=== PATIENT | female | born 1950 | race Caucasian/White ===

== ENCOUNTER 2019-05-15 07:01 | Inpatient (IN) | payer MEDICARE ==
[~2019-05-15] VITALS: Ht 160 cm; Wt 68.0 kg
[~2019-05-15 07:01] MED LIST: ADVIL200 M1; AMOXICILLIN 50500 M1; BACTRIM DS TAB1 EACH PO; BIAXIN 500 MG500 M1 PO; CALAN; CARISOPRODOL 3350 MG PO; DIFLUCAN150 MG PO; EXCEDRIN CAPLE1 EACH PO; FIORICET 50-321 EACH PO; FIORINAL 50-321 EACH PO; FLEXERIL PO; FROVA2.5 MG PO; HYDROCODON-ACE1 EACH; IBUPROFEN PO; IMITREX; IMITREX100 MG PO; KEPPRA 500 MG500 MG PO; MEDROL DOSPAK21 TA1 PO; MELOXICAM7.5 MG; NAPROSYN PO; NAPROSYN375 MG PO; NAPROSYN500 MG PO; NORCO 5-325 TA1 EACH PO; NOVOLOG100 UNIT/1 SQ; PERCOCET 5-3251 EACH; PHENERGAN 25 MG25 M1 PO; PHENERGAN25 MG RE; PRINIVIL20 MG PO; PROPRANOLOL 20M20 M1 PO; PROTONIX PO; PROTONIX40 M2 PO; PROTONIX40 MG PO; TRANSDERM-SCOP1 EACH TD; ULTRAM 50MG TAB50 MG PO; VENTOLIN HFA INH8 GM IH; VERAPAMIL HCL 880 M1 PO; VICODIN 5-5001 EACH PO; ZESTRIL20 MG PO; ZOCOR 20 MG TAB20 M1 PO; ZOFRAN ODT4 MG PO; ZOFRAN4 MG PO
[2019-05-15 07:08] VITALS: BP 128/96
[2019-05-15 07:34] LABS: HEMATOCRIT 38.3 % (37.0-47.0); HEMOGLOBIN 12.2 gm/dL (12.0-15.0); MCH 27.3 pg (26.0-34.0); MCHC 31.9 g/dL (28.0-37.0); MCV 85.4 fL (80.0-100.0); MPV 7.9 fl. (7.2-11.1); NUCLEATED RBCS 0 /100WBC; PLATELET COUNT* 618 thou/uL (150-400); RBC 4.48 mil/uL (4.20-5.00); RDW-CV 16.7 % (10.5-14.5); WBC 11.8 thou/uL (4.0-11.0)
[2019-05-15 07:34] LABS: URINE BILIRUBIN NEGATIVE (Negative); URINE BLOOD NEGATIVE (Negative); URINE CLARITY CLEAR; URINE COLOR YELLOW; URINE GLUCOSE-RANDOM NEGATIVE (Negative); URINE KETONES TRACE (Negative); URINE LEUKOCYTES-REFLEX NEGATIVE (Negative); URINE NITRITE-REFLEX NEGATIVE (Negative); URINE PROTEIN TRACE (Negative); URINE SPECIFIC GRAVITY 1.025 (1.005-1.030); URINE UROBILINOGEN 0.2 E.U./dl (0.2-1.0)
[2019-05-15 07:46] LABS: CREATININE 0.8 mg/dL (0.6-1.3); POTASSIUM 5.3 mmol/L (3.5-5.1)
[2019-05-15 07:51] LABS: ALBUMIN 3.9 g/dL (3.4-5.0); TOTAL BILIRUBIN 0.3 mg/dL (<0.1-1.0); TOTAL PROTEIN 7.9 g/dL (6.4-8.2)
[2019-05-15 08:44] LABS: ABSOLUTE EOSINOPHILS 0.1 thou/uL (0.0-0.7); ABSOLUTE LYMPHOCYTES 0.7 thou/uL (0.8-5.3); ABSOLUTE MONOCYTES 0.2 thou/uL (0.0-1.2); ABSOLUTE NEUTROPHILS 10.7 thou/uL (1.6-8.1); PLATELET ESTIMATE ADEQUATE
[2019-05-15 10:08] VITALS: BP 164/104
[2019-05-15 16:21] VITALS: BP 151/94
[2019-05-15 20:30] VITALS: BP 154/100
[2019-05-16 04:13] LABS: HEMATOCRIT 32.8 % (37.0-47.0); HEMOGLOBIN 10.6 gm/dL (12.0-15.0); MCH 28.1 pg (26.0-34.0); MCHC 32.5 g/dL (28.0-37.0); MCV 86.3 fL (80.0-100.0); MPV 7.9 fl. (7.2-11.1); RBC 3.79 mil/uL (4.20-5.00); RDW-CV 16.7 % (10.5-14.5); WBC 7.9 thou/uL (4.0-11.0)
[2019-05-16 04:33] LABS: ALBUMIN 3.1 g/dL (3.4-5.0); CALCIUM 8.1 mg/dL (8.5-10.1); CREATININE 0.7 mg/dL (0.6-1.3); MAGNESIUM 1.8 mg/dL (1.8-2.4); POTASSIUM 3.3 mmol/L (3.5-5.1); TOTAL BILIRUBIN 0.2 mg/dL (<0.1-1.0); TOTAL PROTEIN 6.3 g/dL (6.4-8.2)
[2019-05-16 07:11] VITALS: BP 138/80
--- NOTE | 2019-05-16 11:36 | EKG ---
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1950 Requested By: Chin Juarez Order Number: [id number] MD: Jonnathan Maya Measurements Intervals [place] Rate: 104 P: 31 WI: 158 QRS: 62 QRSD: 79 T: 54 QT: 320 QTc: 421 Interpretive Statements Sinus tachycardia Borderline T wave abnormalities Baseline wander in lead(s) V5,V6 Compared to ECG 11/08/2009 11:38:02 T-wave abnormality now present Sinus rhythm no longer present Electronically Signed On 05-16-2019 11:36:08 RECORDS SECTION SUPERVISOR by Jonnathan Maya [email or web address] <ELECTRONICALLY SIGNED> By: Jonnathan Maya MD, [facility] 05/16/19 1136 4 4 Jonnathan Maya MD, [facility] /EPI
[2019-05-16 16:00] VITALS: BP 141/79
[2019-05-16 21:00] VITALS: BP 142/92
[2019-05-17 05:26] LABS: HEMATOCRIT 28.5 % (37.0-47.0); HEMOGLOBIN 9.3 gm/dL (12.0-15.0); MCH 28.2 pg (26.0-34.0); MCHC 32.7 g/dL (28.0-37.0); MCV 86.3 fL (80.0-100.0); MPV 7.7 fl. (7.2-11.1); RBC 3.3 mil/uL (4.20-5.00); RDW-CV 16.9 % (10.5-14.5); WBC 6.4 thou/uL (4.0-11.0)
[2019-05-17 05:33] LABS: CALCIUM 7.5 mg/dL (8.5-10.1); CREATININE 0.6 mg/dL (0.6-1.3); POTASSIUM 3.1 mmol/L (3.5-5.1)
[2019-05-17 07:02] VITALS: BP 144/84
[2019-05-17 14:13] VITALS: BP 144/84
[2019-05-17 15:00] VITALS: BP 144/84
== END 2019-05-17 15:00 | disposition home or self-care (01) | DRG 389 ==
LOC: M.ERS 07:01 → M.ORTHSURG 09:38 → M.TBA-ER 09:38 → M.ORTHSURG 10:17
PROVIDERS: Family Medicine; Surgery; ADMIT Internal Medicine
DX: K56.600 Partial intestinal obstruction, unspecified as to cause (principal); E44.1 Mild protein-calorie malnutrition; G43.909 Migraine, unspecified, not intractable, without status migrainosus; I10 Essential (primary) hypertension; K21.9 Gastro-esophageal reflux disease without esophagitis; E87.6 Hypokalemia; Z79.899 Other long term (current) drug therapy; Z90.710 Acquired absence of both cervix and uterus; Z88.8 Allergy status to other drugs, medicaments and biological substances; Z68.26 Body mass index [BMI] 26.0-26.9, adult

== ENCOUNTER 2019-07-13 19:22 | Emergency (ER) | payer MEDICARE ==
[~2019-07-13] VITALS: Ht 157.5 cm; Wt 66.2 kg
[2019-07-13] MEDS ORDERED: VERAPAMIL ER240 M1 PO (19:46)
[2019-07-13 20:39] LABS: ABSOLUTE EOSINOPHILS 0.2 thou/uL (0.0-0.7); ABSOLUTE LYMPHOCYTES 2.6 thou/uL (0.8-5.3); ABSOLUTE MONOCYTES 0.5 thou/uL (0.0-1.2); ABSOLUTE NEUTROPHILS 4.8 thou/uL (1.6-8.1); BASOPHILS 0.3 %; EOSINOPHILS 2.3 %; HEMATOCRIT 37.6 % (37.0-47.0); HEMOGLOBIN 12.4 gm/dL (12.0-15.0); LYMPHOCYTES 31.7 %; MCH 28.7 pg (26.0-34.0); MONOCYTES 5.8 %; MPV 7.8 fl. (7.2-11.1); NUCLEATED RBCS 0 /100WBC; PLATELET COUNT* 466 thou/uL (150-400); POLYS 59.9 %; RBC 4.32 mil/uL (4.20-5.00); RDW-CV 16.9 % (10.5-14.5)
[2019-07-13 20:43] LABS: URINE BILIRUBIN NEGATIVE (Negative); URINE BLOOD NEGATIVE (Negative); URINE CLARITY CLEAR; URINE COLOR YELLOW; URINE GLUCOSE-RANDOM NEGATIVE (Negative); URINE KETONES NEGATIVE (Negative); URINE LEUKOCYTES NEGATIVE (Negative); URINE NITRITE NEGATIVE (Negative); URINE PROTEIN NEGATIVE (Negative); URINE UROBILINOGEN 0.2 E.U./dl (0.2-1.0)
[2019-07-13 20:45] LABS: CALCIUM 9.3 mg/dL (8.5-10.1); CREATININE 0.9 mg/dL (0.6-1.3); POTASSIUM 3.2 mmol/L (3.5-5.1)
[2019-07-13 20:50] LABS: TOTAL BILIRUBIN 0.2 mg/dL (<0.1-1.0); TOTAL PROTEIN 7.8 g/dL (6.4-8.2)
[2019-07-13] MEDS ORDERED: PREDNISONE 10 M10 MG PO (23:04)
[2019-07-13] MEDS ORDERED: BENTYL 10 MG CA10 MG PO (23:04)
[2019-07-13] MEDS ORDERED: CYCLOBENZAPRINE5 MG PO (23:04)
[2019-07-13 23:35] VITALS: BP 156/88
--- NOTE | 2019-07-14 09:23 | EKG ---
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 : 1950 Requested By: Maria T Bridges Order Number: [id number] MD: Jonnathan Maya Measurements Intervals [place] Rate: 91 P: 47 DE: 153 QRS: 66 QRSD: 88 T: 55 QT: 361 QTc: 445 Interpretive Statements Sinus rhythm Borderline T abnormalities, anterior leads Compared to ECG 05/15/2019 07:25:49 Sinus tachycardia no longer present T-wave abnormality still present Electronically Signed On 07-14-2019 9:22:51 SKILLED LABOR by Jonnathan Maya [email or web address] <ELECTRONICALLY SIGNED> By: Jonnathan Maya MD, [facility] 07/14/19921 51 51 Jonnathan Maya MD, [facility] /EPI
== END 2019-07-13 23:37 | disposition home or self-care (01) ==
LOC: M.ERS 19:22
PROVIDERS: Physician Assistant
DX: K52.9 Noninfective gastroenteritis and colitis, unspecified (principal); I10 Essential (primary) hypertension; K21.9 Gastro-esophageal reflux disease without esophagitis; G43.909 Migraine, unspecified, not intractable, without status migrainosus; Z90.711 Acquired absence of uterus with remaining cervical stump

== ENCOUNTER → 2019-08-01 | Outpatient (CLI) | payer MEDICARE ==
[~2019-08-01] MED LIST changes: +BENTYL 10 MG CA10 MG PO; +CYCLOBENZAPRINE5 MG PO; +OXYCODONE HCL 55 MG PO; +PREDNISONE 10 M10 MG PO; +VERAPAMIL ER240 M1 PO
== END ==
LOC: M.ULTRA 09:00
DX: R10.11 Right upper quadrant pain (principal)

== ENCOUNTER 2019-08-03 08:00 | Emergency (ER) | payer MEDICARE ==
[~2019-08-03] VITALS: Ht 160 cm; Wt 66.2 kg
[~2019-08-03 08:00] MED LIST changes: -OXYCODONE HCL 55 MG PO
[2019-08-03 09:02] LABS: APTT 26.1 Seconds (25.0-31.3); PROTIME 9.8 Seconds (9.20-11.50)
[2019-08-03] MEDS ORDERED: ZOFRAN ODT4 MG PO (09:39)
[2019-08-03] MEDS ORDERED: OXYCODONE HCL 55 MG PO (09:39)
[2019-08-03] MEDS ORDERED: IMITREX100 MG PO (10:01)
[2019-08-03 10:12] VITALS: BP 137/93
== END 2019-08-03 10:13 | disposition home or self-care (01) ==
LOC: M.ERS 08:00
PROVIDERS: Personal Emergency Response Attendant
DX: G43.909 Migraine, unspecified, not intractable, without status migrainosus (principal); I10 Essential (primary) hypertension; K21.9 Gastro-esophageal reflux disease without esophagitis; Z90.711 Acquired absence of uterus with remaining cervical stump; Z98.51 Tubal ligation status; Z88.8 Allergy status to other drugs, medicaments and biological substances

== ENCOUNTER 2019-08-07 06:38 | Emergency (ER) | payer MEDICARE ==
[~2019-08-07] VITALS: Ht 160 cm; Wt 66.7 kg
[~2019-08-07 06:38] MED LIST changes: +OXYCODONE HCL 55 MG PO
[2019-08-07 09:54] VITALS: BP 162/97
[2019-08-07] MEDS ORDERED: VERAPAMIL ER240 M1 PO (17:57)
== END 2019-08-07 09:54 | disposition home or self-care (01) ==
LOC: M.ERS 06:38
DX: G43.909 Migraine, unspecified, not intractable, without status migrainosus (principal); I10 Essential (primary) hypertension; K21.9 Gastro-esophageal reflux disease without esophagitis; Z90.721 Acquired absence of ovaries, unilateral; Z88.8 Allergy status to other drugs, medicaments and biological substances

== ENCOUNTER 2019-08-07 17:42 | Inpatient (IN) | payer MEDICARE ==
[~2019-08-07] VITALS: Ht 160 cm; Wt 71.8 kg
[2019-08-07 17:54] VITALS: BP 156/100
[2019-08-07] MEDS ORDERED: VERAPAMIL ER240 M1 PO (17:57)
[2019-08-07 19:47] LABS: INFLUENZA A ANTIGEN Negative (Negative); INFLUENZA B ANTIGEN Negative (Negative)
[2019-08-07 20:02] LABS: HEMOGLOBIN 11.6 gm/dL (12.0-15.0); MCH 29.2 pg (26.0-34.0); MCV 88.5 fL (80.0-100.0); MPV 7.9 fl. (7.2-11.1); NUCLEATED RBCS 0 /100WBC; PLATELET COUNT* 403 thou/uL (150-400); RBC 3.96 mil/uL (4.20-5.00); RDW-CV 17.4 % (10.5-14.5); WBC 8.1 thou/uL (4.0-11.0)
[2019-08-07 20:13] LABS: CALCIUM 8.4 mg/dL (8.5-10.1); CREATININE 0.8 mg/dL (0.6-1.3); POTASSIUM 3.5 mmol/L (3.5-5.1)
[2019-08-07 20:18] LABS: ALBUMIN 3.2 g/dL (3.4-5.0); TOTAL BILIRUBIN 0.2 mg/dL (<0.1-1.0); TOTAL PROTEIN 6.8 g/dL (6.4-8.2)
[2019-08-07 20:29] LABS: ABSOLUTE LYMPHOCYTES 0.7 thou/uL (0.8-5.3); ABSOLUTE NEUTROPHILS 7.4 thou/uL (1.6-8.1)
[2019-08-07 20:30] LABS: ANISOCYTOSIS Occasional; PLATELET ESTIMATE ADEQUATE
[2019-08-07 21:10] LABS: ESR (SEDRATE) 36 mm/hr (0-30)
[2019-08-07 22:08] VITALS: BP 135/75
[2019-08-07 22:17] VITALS: BP 153/96
[2019-08-07 23:40] LABS: URINE BILIRUBIN NEGATIVE (Negative); URINE BLOOD NEGATIVE (Negative); URINE CLARITY CLEAR; URINE COLOR YELLOW; URINE GLUCOSE-RANDOM NEGATIVE (Negative); URINE KETONES NEGATIVE (Negative); URINE LEUKOCYTES-REFLEX NEGATIVE (Negative); URINE NITRITE-REFLEX NEGATIVE (Negative); URINE PROTEIN NEGATIVE (Negative); URINE UROBILINOGEN 0.2 E.U./dl (0.2-1.0)
[2019-08-07 23:47] LABS: AMP/METHAMP Negative (Negative); BARBITURATES POSITIVE (Negative); BENZODIAZEPINES Negative (Negative); COCAINE Negative (Negative); METHADONE Negative (Negative); OPIATES Negative (Negative); PCP Negative (Negative); THC Negative (Negative)
[2019-08-08 03:06] VITALS: BP 131/89
--- NOTE | 2019-08-08 05:55 | NUR ---
PATIENT HAS REMAINED ALERT AND ORIENTED X 4 THROUGHOUT THE SHIFT AND RESTING AT INTERVALS ON HOURLY ROUNDS. DID OBTAIN ADEQUATE PAIN MANAGEMENT WITH ORDERED IV PAIN MEDS AFTER ARRIVAL TO UNIT. UP SBA TO BR WITH GOOD URINE OUTPUT. VITAL SIGNS STABLE. NEUROLOGY CONSULT TODAY. CONTINUE TO MONITOR.
[2019-08-08 07:25] VITALS: BP 117/77
--- NOTE | 2019-08-08 10:42 | NUR ---
CM COMPLETED INITIAL ASSESSMENT. PT A&O. PT LIVES WITH SPOUSE. HAS 0 DMES. NO HX W/HH NOR SNF. PT IS RETIRED. PT DRIVES, ACTIVE AND INDEPENDENT W/ADLS. NO NEEDS IDENTIFIED AT THIS TIME. CM TO REMAIN AVAIL.
[2019-08-08 13:40] VITALS: BP 117/77
[2019-08-08 17:46] VITALS: BP 117/77
[2019-08-08 17:52] VITALS: BP 117/77
--- NOTE | 2019-08-08 17:52 | NUR ---
PT GIVEN DISCHARGE INFORMATION. IV REMOVED. PT BELONGINGS GATHERED. PT LEFT WITHOUT NOTIRFYONG NURSING STAFF THAT THEIR RIDE WAS HERE. FALL RISK PRECAUTIONS IN PLACE. HOURLY ROUNDING COMPLETED.
== END 2019-08-08 17:53 | disposition home or self-care (01) | DRG 918 ==
LOC: M.ERS 17:42 → M.TBA-ER 21:08 → M.ORTHSURG 21:08
PROVIDERS: Nurse Practitioner Family; ADMIT Internal Medicine
DX: T39.8X1A Poisoning by other nonopioid analgesics and antipyretics, not elsewhere classified, accidental (unintentional), initial encounter (principal); G44.41 Drug-induced headache, not elsewhere classified, intractable; G43.909 Migraine, unspecified, not intractable, without status migrainosus; K21.9 Gastro-esophageal reflux disease without esophagitis; I10 Essential (primary) hypertension; Z90.711 Acquired absence of uterus with remaining cervical stump; Z79.899 Other long term (current) drug therapy; Y92.89 Other specified places as the place of occurrence of the external cause; Z88.8 Allergy status to other drugs, medicaments and biological substances

== ENCOUNTER 2019-08-10 01:57 | Emergency (ER) | payer MEDICARE ==
[~2019-08-10] VITALS: Ht 160 cm; Wt 64.9 kg
[2019-08-10] MEDS ORDERED: BENTYL 10 MG CA10 MG PO (02:06)
[2019-08-10 05:35] VITALS: BP 189/110
== END 2019-08-10 05:35 | disposition home or self-care (01) ==
LOC: M.ERS 01:57
DX: G43.909 Migraine, unspecified, not intractable, without status migrainosus (principal); I10 Essential (primary) hypertension; K21.9 Gastro-esophageal reflux disease without esophagitis; Z90.711 Acquired absence of uterus with remaining cervical stump; Z88.8 Allergy status to other drugs, medicaments and biological substances

== ENCOUNTER 2019-08-10 10:36 | Emergency (ER) | payer MEDICARE ==
[~2019-08-10] VITALS: Ht 160 cm; Wt 64.9 kg
[2019-08-10 11:04] VITALS: BP 171/113
== END 2019-08-10 11:07 | disposition left against medical advice (07) ==
LOC: M.ERS 10:36
DX: G43.909 Migraine, unspecified, not intractable, without status migrainosus (principal); I10 Essential (primary) hypertension; K21.9 Gastro-esophageal reflux disease without esophagitis; Z90.711 Acquired absence of uterus with remaining cervical stump; Z88.8 Allergy status to other drugs, medicaments and biological substances

== ENCOUNTER 2019-11-29 18:49 | Emergency (ER) | payer MEDICARE ==
[~2019-11-29] VITALS: Ht 160 cm; Wt 65.8 kg
[2019-11-29 20:18] LABS: ABSOLUTE BASOPHILS 0.1 thou/uL (0.0-0.2); ABSOLUTE EOSINOPHILS 0.1 thou/uL (0.0-0.7); ABSOLUTE LYMPHOCYTES 2.2 thou/uL (0.8-5.3); ABSOLUTE MONOCYTES 0.5 thou/uL (0.0-1.2); ABSOLUTE NEUTROPHILS 3.5 thou/uL (1.6-8.1); BASOPHILS 1.2 %; EOSINOPHILS 2.2 %; HEMATOCRIT 38.3 % (37.0-47.0); LYMPHOCYTES 33.5 %; MCH 31.5 pg (26.0-34.0); MCHC 33.9 g/dL (28.0-37.0); MCV 93.1 fL (80.0-100.0); MONOCYTES 7.8 %; MPV 7.5 fl. (7.2-11.1); NUCLEATED RBCS 0 /100WBC; PLATELET COUNT* 451 thou/uL (150-400); POLYS 55.3 %; RBC 4.11 mil/uL (4.20-5.00); RDW-CV 13.7 % (10.5-14.5); WBC 6.4 thou/uL (4.0-11.0)
[2019-11-29 20:27] LABS: PROTIME 9.9 Seconds (9.20-11.50)
[2019-11-29 21:52] LABS: CREATININE 0.9 mg/dL (0.6-1.3); POTASSIUM 3.4 mmol/L (3.5-5.1)
[2019-11-29 21:57] LABS: ALBUMIN 4.1 g/dL (3.4-5.0); TOTAL BILIRUBIN 0.3 mg/dL (<0.1-1.0); TOTAL PROTEIN 7.8 g/dL (6.4-8.2)
[2019-11-29 22:54] VITALS: BP 133/88
== END 2019-11-29 22:55 | disposition home or self-care (01) ==
LOC: M.ERS 18:49
PROVIDERS: Emergency Medicine
DX: G43.909 Migraine, unspecified, not intractable, without status migrainosus (principal); I10 Essential (primary) hypertension; K21.9 Gastro-esophageal reflux disease without esophagitis; Z90.710 Acquired absence of both cervix and uterus; Z98.51 Tubal ligation status

== ENCOUNTER 2020-12-18 21:13 | Inpatient (IN) | payer MEDICARE ==
[~2020-12-18] VITALS: Ht 157.5 cm; Wt 65.7 kg
[2020-12-18 21:28] VITALS: BP 164/106
[2020-12-18] MEDS ORDERED: FLEXERIL PO (21:32)
[2020-12-18 22:55] LABS: CALCIUM 9.7 mg/dL (8.5-10.1); CREATININE 0.6 mg/dL (0.6-1.3); POTASSIUM 4.4 mmol/L (3.5-5.1)
[2020-12-18 22:57] LABS: HEMATOCRIT 43.1 % (37.0-47.0); MPV 8.1 fl. (7.2-11.1); RBC 4.65 mil/uL (4.20-5.00)
[2020-12-18 22:59] LABS: ALBUMIN 3.9 g/dL (3.4-5.0); HEMOGLOBIN 14.5 gm/dL (12.0-15.0); MCH 31.2 pg (26.0-34.0); MCHC 33.7 g/dL (28.0-37.0); MCV 92.6 fL (80.0-100.0); NUCLEATED RBCS 0 /100WBC; PLATELET COUNT* 419 thou/uL (150-400); RDW-CV 15.2 % (10.5-14.5); TOTAL BILIRUBIN 0.3 mg/dL (<0.1-1.0); TOTAL PROTEIN 7.2 g/dL (6.4-8.2); WBC 13.5 thou/uL (4.0-11.0)
--- NOTE | 2020-12-18 23:07 | NUR ---
PT TO CT
[2020-12-18 23:47] LABS: URINE BILIRUBIN NEGATIVE (Negative); URINE BLOOD NEGATIVE (Negative); URINE CLARITY CLEAR; URINE COLOR YELLOW; URINE GLUCOSE-RANDOM NEGATIVE (Negative); URINE KETONES NEGATIVE (Negative); URINE LEUKOCYTES-REFLEX NEGATIVE (Negative); URINE NITRITE-REFLEX NEGATIVE (Negative); URINE PROTEIN NEGATIVE (Negative); URINE SPECIFIC GRAVITY 1.015 (1.005-1.030); URINE UROBILINOGEN 0.2 E.U./dl (0.2-1.0)
[2020-12-18 23:56] LABS: ABSOLUTE LYMPHOCYTES 1.2 thou/uL (0.8-5.3); ABSOLUTE MONOCYTES 0.1 thou/uL (0.0-1.2); ABSOLUTE NEUTROPHILS 12.2 thou/uL (1.6-8.1)
[2020-12-18 23:58] LABS: PLATELET ESTIMATE INCREASED
[2020-12-19 02:36] VITALS: BP 146/95
[2020-12-19 02:43] VITALS: BP 149/92
--- NOTE | 2020-12-19 06:37 | NUR ---
ASSUMED CARE OF PT AT APPROX 0233. PT A&OX4, VSS ON ROOM AIR. PT WITH SBA TO [facility]. IV FLUIDS INFUSING ORDERED. PRN IV PAIN AND ANTIEMETIC MEDICATION REQUESTED AND GIVEN ORDERED. PT NPO. ASSESSMENTS AND HOURLY ROUNDINGS COMPLETE, WILL CONTINUE TO MONITOR.
[2020-12-19 08:20] VITALS: BP 143/94
--- NOTE | 2020-12-19 09:32 | EKG ---
[place] [address] ELECTROCARDIOGRAM REPORT Name: DAQUAN HUYNH NILDA Room: [address] ADM IN .R.#: [id number] Admission: 12/19/20 Attend Phys: Pascual Love Discharge: Date of : 54 Date of Service: 12/18/202126 Report #: [id number] THIS REPORT FOR: //name// [facility] ED Test Date: 2020-12-18 Test Time: 21:27:30 Pat Name: DAQUAN HUYNH Department: Room: [facility] Gender: F Apartment Locator: [place] : 1950 Requested By: Puja Garg Order Number: [id number] MD: Jonnathan Maya Measurements Intervals [place] Rate: 104 P: 70 AR: 190 QRS: 73 QRSD: 95 T: 44 QT: 345 QTc: 454 Interpretive Statements Sinus tachycardia Borderline T wave abnormalities Baseline wander in lead(s) V6 Compared to ECG 07/13/2019 19:52:23 Sinus rhythm no longer present T-wave abnormality still present Electronically Signed On 12-19-2020 9:32:40 CDT by Jonnathan Maya [email or web address] <ELECTRONICALLY SIGNED> By: Jonnathan Maya MD, [facility] 12/19/20931 26 26 Jonnathan Maya MD, [facility] /EPI
[2020-12-19 15:46] VITALS: BP 170/93
--- NOTE | 2020-12-19 16:10 | NUR ---
PT ADMITTED D/T SOB. INDICATED SHE LIVES AT HOME WITH SPOUSE. PT HAD 0 DMES, AND IS INDEPENDENT WITH ADLS. PT HAS NO HX WITH HH OR SNF, PT DOESNT BELIEVE SHE'LL NEED HH AT D/C. THERE ARE NO ANTICIPATED CM NEEDS AT D/C.
--- NOTE | 2020-12-19 18:30 | NUR ---
PT ALERT AND ORIENTED X 4. ANXIOUS. FLAT AFFECT AT TIME. CALL LIGHT WITHIN REACH. STANDBY ASSIST. PT C/O HEADACHE. DR. MENARD NOTIFIED. CT NEGATIVE. WILL CONTINUE TO MONITOR.
[2020-12-19 21:10] VITALS: BP 170/98
[2020-12-20 05:39] LABS: HEMATOCRIT 34.1 % (37.0-47.0); MCH 31.6 pg (26.0-34.0); MCHC 34.1 g/dL (28.0-37.0); MCV 92.7 fL (80.0-100.0); MPV 7.5 fl. (7.2-11.1); RBC 3.67 mil/uL (4.20-5.00); WBC 8.4 thou/uL (4.0-11.0)
[2020-12-20 05:47] LABS: CALCIUM 8.5 mg/dL (8.5-10.1); CREATININE 0.5 mg/dL (0.6-1.3); MAGNESIUM 1.8 mg/dL (1.8-2.4)
[2020-12-20 05:48] LABS: HEMOGLOBIN 11.6 gm/dL (12.0-15.0)
[2020-12-20 05:55] LABS: POTASSIUM 2.9 mmol/L (3.5-5.1)
--- NOTE | 2020-12-20 07:43 | NUR ---
PATIENT HAS SLEPT OFF AND ON DURING THE NIGHT WITH PERIODS OF RESTLESSNESS. VSS ON RA, ALTHOUGH BP ELEVATED. PATIENT C/O HEADACHE BUT DOES HAVE HISTORY OF MIGRAINES. PATIENT HAS REMAINED NPO EXCEPT FOR SIPS WITH MEDICATIONS. MEDICATIONS GIVEN ORDERED AND CHARTED. IV IN LEFT FOREARM-NS @ 100ML/HR. NO BM NOTED DURING SHIFT. PATIENT INSTRUCTED TO USE SHAILESH LIGHT WHEN NEEDING ASSISTANCE. HOURLY ROUNDS MADE. WILL CONTINUE WITH PLAN OF CARE AND NURSING TO MONITOR.
[2020-12-20 07:45] VITALS: BP 143/94
[2020-12-20 10:56] LABS: MAGNESIUM 1.9 mg/dL (1.8-2.4); PHOSPHORUS* 2.1 mg/dL (2.5-4.9)
--- NOTE | 2020-12-20 14:46 | NUR ---
PT CONT WITH UNCONTROLLED PAIN AND NEED TO HAVE BOWEL MOVEMENT. POC IS FOR PT TO D/C HOME WITH NO CM NEEDS.
[2020-12-20 15:55] LABS: POTASSIUM 3.2 mmol/L (3.5-5.1)
[2020-12-20 16:00] VITALS: BP 141/88
--- NOTE | 2020-12-20 18:30 | NUR ---
PT ALERT AND ORIENTED. PT UP STEADY WITHOUT ASSIST. CALL LIGHT WITHIN REACH. PT C/O HEADACHE AT THIS TIME. DENIES NAUSEA. AT BEDSIDE. ICE APPLIED TO LOWER FOREARM DUE TO SWELLING AND PAIN. IV TAKEN OUT DUE TO INFILTRATION. POTASSIUM AND PHOSPHORUS REPLACEMENT GIVEN. PT HAD 4 LOOSE STOOLS THIS SHIFT. SURGERY RESIDENT IN TO SEE PATIENT. PT REMAINS ON CLEAR LIQUIDS. TOLERATING WELL. WILL CONTINUE TO MONITOR.
[2020-12-20 21:20] VITALS: BP 137/83
--- NOTE | 2020-12-21 07:39 | NUR ---
PATIENT HAS RESTED WELL [id number] MOST OF THE NIGHT. VSS ON RA. MEDICATIONS GIVEN ORDERED AND CHARTED. NO IV ACCESS. ATTEMPTS MADE AT OBTAINING PERIPHERAL IV ACCESS BUT WAS UNSUCCESSFUL. DR. MCKEE NOTIFIED OF PATIENT NOT HAVING IV ACCESS AND NEW ORDER GIVEN FOR ORAL ZOFRAN PRN. NO BOWEL MOVEMENTS NOTED DURING SHIFT. PATIENT ADVANCED TO REGULAR DIET THIS AM. PATIENT INSTRUCTED TO USE CALL LIGHT WHEN NEEDING ASSISTANCE. HOURLY ROUNDS MADE. WILL CONTINUE WITH PLAN OF CARE AND NURSING TO MONITOR.
[2020-12-21 07:46] LABS: ABSOLUTE BASOPHILS 0.1 thou/uL (0.0-0.2); ABSOLUTE EOSINOPHILS 0.4 thou/uL (0.0-0.7); ABSOLUTE LYMPHOCYTES 1.8 thou/uL (0.8-5.3); ABSOLUTE MONOCYTES 0.4 thou/uL (0.0-1.2); BASOPHILS 1.4 %; EOSINOPHILS 8.8 %; HEMATOCRIT 34.2 % (37.0-47.0); HEMOGLOBIN 11.6 gm/dL (12.0-15.0); LYMPHOCYTES 38.8 %; MCH 31.5 pg (26.0-34.0); MCHC 33.8 g/dL (28.0-37.0); MCV 93.1 fL (80.0-100.0); MONOCYTES 7.6 %; MPV 7.2 fl. (7.2-11.1); NUCLEATED RBCS 0 /100WBC; PLATELET COUNT* 402 thou/uL (150-400); POLYS 43.4 %; RBC 3.67 mil/uL (4.20-5.00); RDW-CV 15.1 % (10.5-14.5); WBC 4.7 thou/uL (4.0-11.0)
[2020-12-21 07:56] LABS: CALCIUM 8.7 mg/dL (8.5-10.1); CREATININE 0.6 mg/dL (0.6-1.3)
[2020-12-21 07:57] LABS: POTASSIUM 4.6 mmol/L (3.5-5.1)
[2020-12-21 08:00] VITALS: BP 137/102
[2020-12-21 13:36] VITALS: BP 173/102
--- NOTE | 2020-12-21 14:13 | NUR ---
PT ALERT AND ORIENTED X 4. PT STATES UNDERSTANDING TO DISCHARGE INSTRUCTIONS. PT TO FOLLOW UP WITH PCP DIRECTED. PT GIVEN HOME MEDS LOCKED UP IN PHARMACY. AT BEDSIDE. PT STEADILY AMBULATORY. NO COMPLAINTS AT THIS TIME.
[2020-12-21 15:21] VITALS: BP 173/102
== END 2020-12-21 14:30 | disposition home or self-care (01) | DRG 389 ==
LOC: M.ERS 21:13 → M.TBA-ER 12-19 01:05 → M.ORTHSURG 12-19 01:05
PROVIDERS: Internal Medicine; Personal Emergency Response Attendant; ADMIT Internal Medicine; ATTEND Internal Medicine
DX: K56.609 Unspecified intestinal obstruction, unspecified as to partial versus complete obstruction (principal); R65.10 Systemic inflammatory response syndrome (SIRS) of non-infectious origin without acute organ dysfunction; I10 Essential (primary) hypertension; G43.909 Migraine, unspecified, not intractable, without status migrainosus; R91.8 Other nonspecific abnormal finding of lung field; K21.9 Gastro-esophageal reflux disease without esophagitis; Z20.822 Contact with and (suspected) exposure to COVID-19; Z90.711 Acquired absence of uterus with remaining cervical stump; Z88.8 Allergy status to other drugs, medicaments and biological substances; Z79.899 Other long term (current) drug therapy

== ENCOUNTER 2021-06-11 19:02 | Emergency (ER) | payer MEDICARE ==
[~2021-06-11] VITALS: Ht 157.5 cm; Wt 59.0 kg
[2021-06-11] MEDS ORDERED: BENTYL10 MG/1 ML PO (19:22)
[2021-06-11 20:21] LABS: INFLUENZA A ANTIGEN Negative (Negative); INFLUENZA B ANTIGEN Negative (Negative)
[2021-06-11 21:31] LABS: URINE BILIRUBIN NEGATIVE (Negative); URINE BLOOD NEGATIVE (Negative); URINE CLARITY CLEAR; URINE COLOR YELLOW; URINE GLUCOSE-RANDOM NEGATIVE (Negative); URINE KETONES NEGATIVE (Negative); URINE LEUKOCYTES-REFLEX NEGATIVE (Negative); URINE NITRITE-REFLEX NEGATIVE (Negative); URINE PROTEIN NEGATIVE (Negative); URINE UROBILINOGEN 0.2 E.U./dl (0.2-1.0)
[2021-06-11] MEDS ORDERED: ZOFRAN ODT4 MG PO (22:53)
[2021-06-11 22:58] VITALS: BP 144/72
== END 2021-06-11 22:58 | disposition home or self-care (01) ==
LOC: M.ERS 19:02
PROVIDERS: Emergency Medicine; Physician Assistant
DX: G43.909 Migraine, unspecified, not intractable, without status migrainosus (principal); Z20.822 Contact with and (suspected) exposure to COVID-19; I10 Essential (primary) hypertension; K21.9 Gastro-esophageal reflux disease without esophagitis; Z98.51 Tubal ligation status; Z79.899 Other long term (current) drug therapy